=== PATIENT | male | born 1975 | race Caucasian/White ===

== ENCOUNTER 2016-10-12 18:00 | Inpatient (IN) | payer OTHER ==
--- NOTE | ~2016-10-12 | PN ---
Unit #: [id number] #: [id number] Patient: LOC SHOEMAKER [id number] [facility] [address] [place] [address] [id number] MR#: [id number] NAME: LOC SHOEMAKER ROOM: [facility] Age: 41 Sex: M Admission Date: 10/12/2016 : 1975 Attending Physician: Trev Levine M.D. Admitting Physician: Trev Levine M.D. Primary Care Physician: Primary Care Physician Erika ARREAGA PROGRESS NOTES DATE 10/14/2016 DISCUSSION The patient is irritable today and continues to endorse positive suicidal ideation. He has apparently had an allergic reaction to some of the pills that he had taking, and we are not giving Benadryl. The patient reports that he had been off of previously prescribed Seroquel. At this point I do not look to reinitiate any prescribed psychotropic medications given the patient's ongoing abuse of substances including cannabis, alcohol, cocaine, and methamphetamine. Dictated by... Trev Levine M.D. CB/lisa TD: 10/14/2016 14:05 JOB #: [id number] [facility] NOTES Page 1 of 1 X Trev Levine MD PROGRESS NOTE
--- NOTE | ~2016-10-12 | DS ---
Unit #: [id number] #: [id number] Patient: LOC SHOEMAKER [id number] [place] [address] [id number] MR#: [id number] NAME: LOC SHOEMAKER ROOM: [facility] Age: 41 Sex: M Admission Date: 10/12/2016 : 1975 Discharge Date: 10/16/2016 Attending Physician: Trev Levine M.D. Primary Care Physician: Primary Care Physician No DISCHARGE SUMMARY ADDENDUM During his stay in the hospital, the patient is informed of his hepatitis C positive status and thus, he was already aware of his diagnosis with that disorder. His discharge diagnoses should include also hepatitis C. Dictated by... Trev Levine M.D. CB/dot TD: 10/16/2016 14:49 JOB #: [id number] DISCHARGE SUMMARY Page 1 of 1 X Trev Levine MD X DISCHARGE SUMMARY
--- NOTE | ~2016-10-12 | PA ---
Unit #: [id number] #: [id number] Patient: LOC SHOEMAKER [id number] [facility] [address] [place] [address] [id number] MR#: [id number] NAME: LOC SHOEMAKER ROOM: P181 Age: 41 Sex: M Admission Date: 10/12/2016 : 1975 Date of Assessment: 10/13/2016 Attending Physician: Trev Levine M.D. Admitting Physician: Trev Levine M.D. Primary Care Physician: Primary Care Physician No PSYCHIATRIC ASSESSMENT IDENTIFYING INFORMATION The patient is a 41-year-old white male admitted in transfer from [facility] admitted following an intentional ingestion of anti-hypertensive medications and altered mental status. INFORMANT(S) Chart. The patient could not be aroused for interview. CHIEF COMPLAINT None given HISTORY OF PRESENT ILLNESS The patient is a 41-year-old white male last hospitalized to this facility in January of 2016. He is admitted transfer from [facility] where he had presented after taking an overdose of anti-hypertension medication. He had exhibited altered mental status. The patient's UDS was positive for cocaine, marijuana and amphetamines. He continued to report positive suicidal ideation at that facility. When seen today the patient is abed resting comfortably and cannot be aroused for further interview. For more complete history of present illness please refer to previous dictated notes. PAST PSYCHIATRIC HISTORY Reviewed no changes. PAST MEDICAL HISTORY Reviewed no changes MEDICATIONS None. ALLERGIES Morphine FAMILY HISTORY Reviewed no changes. SOCIAL HISTORY Reviewed no changes. MENTAL STATUS EXAMINATION At this time reveals the patient to be a soundly sleeping white male who appears to be in no apparent physical distress. Unit #: [id number] #: [id number] Patient: LOC SHOEMAKER ASSETS AND LIABILITIES ASSETS: To be assessed. LIABILITIES: Ongoing substance use, poor compliance of treatment, lack of resources. DIAGNOSTIC IMPRESSION 1. Methamphetamine use disorder 2. Cocaine use disorder 3. Alcohol use disorder 4. Cannabis use disorder PSYCHIATRIC PLAN/TREATMENT GOALS The patient remains hospitalized for safety and stabilization. A routine detoxification protocol for alcohol has been initiated and suicidal precautions are in place. When the patient is better able to participate in interview we will consider reinitiation of psychotropic medications specifically Seroquel and Celexa which the patient is reportedly taken in the past. The patient will participate in appropriate orellana and milieu activities with an estimate length of stay in the hospital of five days. Dictated by... Trev Levine M.D. CB/austin TD: 10/13/2016 11:23 JOB #: [id number] PSYCHIATRIC ASSESSMENT Page 1 of 1 X Trev Levine MD X PSYCHIATRIC ASSESSMENT
--- NOTE | ~2016-10-12 | HP ---
Unit #: [id number] #: [id number] Patient: LOC SHOEMAKER [id number] [place] [address] [id number] MR#: [id number] NAME: LOC SHOEMAKER ROOM: [facility] Age: 41 Sex: M Admission Date: 10/12/2016 : 1975 Attending Physician: Trev Levine M.D. Admitting Physician: Trev Levine M.D. Primary Care Physician: Primary Care Physician No HISTORY AND PHYSICAL HISTORY OF PRESENT ILLNESS The patient is a 41-year-old male, admitted to [facility] on 10/12/2016 for suicidal ideations and polysubstance abuse. The patient refused to answer any questions, and refused examination, some information was retrieved from the chart. PAST MEDICAL HISTORY The patient refused to answer but per chart, history of sciatica. PAST SURGICAL HISTORY The patient refused to answer. ALLERGIES Morphine. SOCIAL HISTORY According to the chart, he is unemployed. He lives with his mother and girlfriend. He smokes one pack of cigarettes daily and has a history of polysubstance abuse. His tox screen was positive for marijuana, cocaine, and methamphetamines. FAMILY MEDICAL HISTORY Noncontributory. REVIEW OF SYSTEMS The patient refused to answer questions for review of systems. CURRENT MEDICATIONS The patient is not on any home medications. PHYSICAL EXAMINATION GENERAL: The patient refused. VITAL SIGNS: Temperature 97.7, heart rate 66, respirations 16, blood pressure 98/50. HEIGHT: 5 feet 7 inches. WEIGHT: 175 pounds. IMPRESSION 1. Psychiatric admission. 2. Polysubstance abuse. 3. Nicotine dependence. Unit #: [id number] #: [id number] Patient: LOC SHOEMAKER RECOMMENDATIONS Psychiatric, per psychiatrist. MEDICAL I see no contraindications to participating in facility's activities. MEDICAL PROGNOSIS Appears to be good. MEDICAL CONDITION Appears to be stable. Dictated by... Leo Cuevas/erika TD: 10/14/2016 05:25 JOB #: [id number] HISTORY AND PHYSICAL Page 1 of 1 X GENEVIEVE ADITI RIOS X HISTORY AND PHYSICAL
--- NOTE | ~2016-10-12 | DS ---
Unit #: [id number] #: [id number] Patient: LOC SHOEMAKER [id number] [facility] [address] [place] [address] [id number] MR#: [id number] NAME: LOC SHOEMAKER ROOM: [facility] Age: 41 Sex: M Admission Date: 10/12/2016 : 1975 Discharge Date: 10/16/2016 Attending Physician: Trev Levine M.D. DISCHARGE SUMMARY REASON FOR ADMISSION The patient is a 41-year-old white male, admitted following an overdose of antihypertensive medication. HOSPITAL COURSE The patient was admitted to the [facility] unit and placed on suicide precautions. A routine detoxification protocol for alcohol was initiated. The patient showed slow, but steady improvement in mentation and mood. By 10/16/2016, he reported no suicidal ideation and was contrite over the ensuing hospitalization. He requested discharge and was so ordered. FINAL DIAGNOSES Methamphetamine use disorder; cocaine use disorder; alcohol use disorder; cannabis use disorder; dysthymic disorder. DISPOSITION ON DISCHARGE The patient is discharged on the following medications: Medrol Dosepak for allergic reaction, calamine lotion apply t.i.d. to affected areas for rash. DISCHARGE INSTRUCTIONS No dietary or physical restrictions were placed upon the patient at the time of discharge. FOLLOWUP Followup will take place through the auspices of community mental health and chemical dependency treatment resources. PROGNOSIS The patient's prognosis is considered fair. Dictated by... Trev Levine M.D. CB/dot TD: 10/16/2016 16:08 JOB #: [id number] Unit #: [id number] #: [id number] Patient: LOC SHOEMAKER DISCHARGE SUMMARY Page 1 of 1 X Trev Levine MD X DISCHARGE SUMMARY
--- NOTE | ~2016-10-12 | PN ---
Unit #: [id number] #: [id number] Patient: LOC SHOEMAKER [id number] [facility] [address] [place] [address] [id number] MR#: [id number] NAME: LOC SHOEMAKER ROOM: 81 Age: 41 Sex: M Admission Date: 10/12/2016 : 1975 Attending Physician: Trev Levine M.D. Admitting Physician: Trev Levine M.D. Primary Care Physician: Primary Care Physician Erika ARREAGA PROGRESS NOTES DATE 10/14/2016 DISCUSSION The patient is abed today. He continues to complain of significant discomfort related to the rash on his arms, this in spite of having received aggressive steroid treatment. He has continued to endorse hopelessness and suicidal ideation and continues to complain of significant symptoms of withdrawal. Dictated by... Trev Levine M.D. BRIAN/lisa TD: 10/15/2016 14:02 JOB #: [id number] [facility] PROGRESS NOTES Page 1 of 1 X Trev Levine MD PROGRESS NOTE
[~2016-10-12 18:00] MED LIST: ANTIBOTIC
[2016-10-13 13:01] LABS: ALBUMIN SERUM 3.5 g/dL (3.5-5.0); BILIRUBIN,TOTAL 1.7 mg/dL (0.2-2.0); BUN/CREATININE RATIO 28.33; CALCIUM SERUM 8.9 mg/dL (8.4-10.2); CREATININE SERUM 0.6 mg/dL (0.6-1.4); GLOM FILT RATE Estimated 124.1 mL/min (>60); POTASSIUM 4.3 mmol/L (3.5-5.1); PROTEIN TOTAL SERUM 6.1 g/dL (6.0-8.3)
[2016-10-14 09:49] LABS: BASOPHIL% 0.5 % (0-2.5); EOSINOPHIL# 0.7 X10e3 (0-0.7); EOSINOPHIL% 8.3 % (0.0-7.0); HEMATOCRIT 42.2 % (38.0-50.0); HEMOGLOBIN 14.3 gm/dL (13.0-16.0); LYMPHOCYTE# 1.7 X10e3 (1.0-3.5); LYMPHOCYTE% 19.6 % (17.0-45.0); MEAN CELL VOLUME 90.8 FL (83-96); MEAN CORPUSCULAR HEMOGLOBIN 30.8 PG (28-34); MEAN CORPUSCULAR HGB CONC 33.9 g/dL (30-36); MONOCYTE# 0.6 X10e3 (0-1.0); MONOCYTE% 7.1 % (3.0-12.0); NEUTROPHIL# 5.5 X10e3 (1.5-7.1); NEUTROPHIL% 64.5 % (40-75); PLATELET COUNT 265 X10e3 (140-420); RED BLOOD COUNT 4.65 X10e (3.90-5.60); RED CELL DISTRIBUTION WIDTH 14.3 % (11.0-15.5); WHITE BLOOD COUNT 8.5 X10e3 (4.0-10.5)
[2016-10-14 09:50] LABS: DIFF IND NO
[2016-10-16 07:59] LABS: HA AB IGM (HEPPAN) Nonreactive (()); HB CORE AB IGM (HEPPAN) Nonreactive (Nonreactive); HB S AG (HEPPAN) Nonreactive (Nonreactive); HEP C AB (HEPPAN) Reactive (Nonreactive)
== END 2016-10-16 15:21 | DRG 897 ==
LOC: P1E 21:30
PROVIDERS: Specialist
PROC: HZ2ZZZZ Detoxification Services for Substance Abuse Treatment (ICD-10-PCS; principal; 2016-10-12)
DX: F15.10 Other stimulant abuse, uncomplicated (principal); F14.10 Cocaine abuse, uncomplicated; R45.851 Suicidal ideations; F10.10 Alcohol abuse, uncomplicated; F12.10 Cannabis abuse, uncomplicated; B19.20 Unspecified viral hepatitis C without hepatic coma
CPT/HCPCS: 80053; 80074; 85025; 86592; 87522; 87806; J1040; J1200